=== PATIENT | female | born 1965 | race African-American/Black ===

== ENCOUNTER 2023-10-14 22:19 | Emergency (ER) | payer SELFPAY ==
[2023-10-15] MEDS ORDERED: Ketorolac Tromethamine 30 MG/ML VIAL ONE (00:20)
[2023-10-15] MEDS ORDERED: diphenhydrAMINE 50 MG/ML VIAL ONE (00:20)
[2023-10-15] MEDS ORDERED: Acetaminophen 500 MG TAB ONE (00:20)
[2023-10-15] MEDS ORDERED: Prochlorperazine 10 MG/2 ML VIAL ONE (00:20)
[2023-10-15] MEDS ORDERED: Famotidine/PF 20 mg/2ml Vial ONE (00:21)
== END 2023-10-15 01:50 | disposition home or self-care (01) ==
LOC: CSHERS 22:19
DX: G43.909 Migraine, unspecified, not intractable, without status migrainosus (principal); I10 Essential (primary) hypertension
CPT/HCPCS: 96374; 96375; J0780; J1200; J1885; S0028